=== PATIENT | female | born 1995 | race Caucasian/White ===

== ENCOUNTER 2016-08-11 12:54 | Emergency (ER) | payer OTHER ==
[2016-08-11 13:07] VITALS: BP 117/66; PULSE 89; RESP 18; TEMP 98
--- NOTE | 2016-08-11 13:40 | ED ---
Extremity Problem HPI - General Chief complaint: Extremity Problem,Nontraumatic Stated complaint: Infected Tattoo Time Seen by Provider: 08/11/16 13:12 Source: patient, RN notes reviewed Mode of arrival: ambulatory Limitations: no limitations - History of Present Illness Initial comments: Patient is a 20-year-old female presents to the emergency room for evaluation of tattoo infection/rash. Patient states that she got a tattoo done on her left leg on Saturday. Patient states she had the tattoo done at a friend's house. Patient states she has had tattoos done by this friend before and has never had a rash like this afterwards. Patient states that 2 days ago she began developing a rash surrounding the tattoo site. Patient states yesterday she went to urgent care and she was given a steroid injection, placed on Medrol Dosepak and given mupirocin ointment. Patient states she's been taking the medications as directed and has been applying the ointment. Patient states this morning when she woke up she noticed a worsening rash mostly on the medial portion of her posterior thigh just outside of the tattoo. Patient states the rash is itchy and painful. Patient denies placing any new ointments over the tattoo after the tattoo was finished. Patient states that her friend uses sterile utensils. Patient denies fevers or chills. Patient denies nausea or vomiting. Denies new detergents, body soaps, lotions. - Related Data Home Medications Medication Instructions Recorded Confirmed Mupirocin [Mupirocin 2%] 1 applic TOPICAL QID 08/11/16 08/11/16 methylPREDNISolone Dose Pack See Taper PO DAILY 08/11/16 08/11/16 [Medrol Dose Pack] Previous Rx's Medication Instructions Recorded Cephalexin [Keflex] 500 mg PO Q6HR 7 Days 08/11/16 Allergies Allergy/AdvReac Type Severity Reaction Status Date / Time No Known Allergies Allergy Verified 08/11/16 13:20 Review of Systems ROS Statement: Those systems with pertinent positive or pertinent negative responses have been documented in the HPI. ROS Other: All systems not noted in ROS Statement are negative. Past Medical History Past Medical History: No Reported History Additional Past Medical History / Comment(s): reading glasses History of Any Multi-Drug Resistant Organisms: None Reported Past Surgical History: Adenoidectomy, Tonsillectomy Additional Past Surgical History / Comment(s): wisdom teeth Past Anesthesia/Blood Transfusion Reactions: No Reported Reaction Past Psychological History: No Psychological Hx Reported Smoking Status: Never smoker Past Alcohol Use History: None Reported Past Drug Use History: None Reported - Past Family History Mother Family Medical History: No Reported History, Hypertension Brother(s) Family Medical History: No Reported History, Hypertension General Exam - General Exam Comments Initial Comments: Sitting in exam room, no acute distress. Limitations: no limitations General appearance: alert, in no apparent distress Head exam: Present: atraumatic, normocephalic, normal inspection Eye exam: Present: normal appearance ENT exam: Present: normal exam Neck exam: Present: normal inspection Respiratory exam: Present: normal lung sounds bilaterally. Absent: respiratory distress Cardiovascular Exam: Present: regular rate, normal rhythm, normal heart sounds Left Hip exam: Absent: normal inspection (large tattoo on the posterior portion of the upper thigh in the shape of a black bow. Surrounding erythematous papular lesions. No lesions on the tattoo itself.) Course Vital Signs 08/11/16 13:03 Temperature 98 F Pulse Rate 89 Respiratory 18 Rate Blood Pressure 117/66 O2 Sat by Pulse 99 Oximetry Medical Decision Making - Medical Decision Making Patient is a 20-year-old female since emergency room for evaluation of tattoo infection/rash. is already placed on Medrol Dosepak and mupirocin ointment. Rash does look similar to folliculitis. Patient be placed on Keflex. Advised patient to continue with mupirocin ointment and Medrol Dosepak. Advised patient to follow-up with her primary care provider on Saturday for reevaluation. Patient states she understands everything that was discussed with her. Return parameters discussed. Case discussed with Dr. Aguero who also evaluated patient. Disposition Clinical Impression: Folliculitis Disposition: HOME SELF-CARE Condition: Good Instructions: Folliculitis (ED) Additional Instructions: Continue with mupirocin ointment and steroids. Take antibiotics as directed. Please follow up with primary care provider in 1-2 days for reevaluation. If any new symptom arises or symptoms worsen, return to ER as soon as possible. Prescriptions: Cephalexin [Keflex] 500 mg PO Q6HR 7 Days Referrals: None,Stated [Primary Care Provider] - 1-2 days Time of Disposition: 13:39
== END 2016-08-11 13:54 | disposition home or self-care (01) ==
LOC: EC 12:54
DX: L73.9 Follicular disorder, unspecified (principal)
CPT/HCPCS: 99282

== ENCOUNTER → 2016-11-29 | Outpatient (CLI) | payer OTHER ==
--- NOTE | 2016-11-29 13:25 | US ---
EXAMINATION TYPE: US pelvic complete DATE OF EXAM: 11/29/2016 COMPARISON: NONE CLINICAL HISTORY: R10.2 Pelvic pain. Pt states generalized pelvic pain, pt has had IUD in place appro x 3 yrs TECHNIQUE: Transabdominal (TA), pt stated her bladder felt very full, TV not performed- little child in room Date of LMP: 11/07/2016 EXAM MEASUREMENTS: Uterus: 8.8 x 4.4 x 6.4 cm Endometrial Stripe: Right= 1.2 cm/ Left= 0.8 cm cm Right Ovary: 4.2 x 2.6 x 2.5 cm Left Ovary: 6.2 x 2.9 x 4.0 cm 1. Uterus: Anteverted wnl, IUD in correct position 2. Endometrium: Right and left "horns" visualized/ Right endo= 1.2 cm, Left endo= 0.8 cm 3. Right Ovary: wnl 4. Left Ovary: Simple dominant paraovarian follicle = 2.4 x 1.9 x 1.8 cm/ Possible resolving hemorrh agic cyst/follicle = 1.9 x 1.6 x 1.5 cm versus endometriomas this is homogeneous internal echogenicit y. 5. Bilateral Adnexa: wnl 6. Posterior cul-de-sac: Moderate amount of free fluid= 5.3 x 3.2 x 6.7 cm IMPRESSION: 1. Simple dominant left paraovarian follicle and 1.9 cm resolving left ovarian cyst/follicle versus e ndometrioma. Short-term follow-up in 3 menstrual cycles could be performed to evaluate for resolution . If this follicle has resolved and relates to an involuting hemorrhagic cyst/follicle and if it pers ists endometrioma would be highly considered. 2. Appropriately placed intrauterine device in the appearance of 2 fundal uterine cavities which coul d represent uterine didelphys or septate uterus. 3. Moderate amount of simple appearing free fluid within the dependent pelvis, likely physiologic.
== END | disposition home or self-care (01) ==
LOC: RADUSWWP 12:16
PROVIDERS: ATTEND Obstetrics & Gynecology
DX: R10.2 Pelvic and perineal pain (principal); Z97.5 Presence of (intrauterine) contraceptive device
CPT/HCPCS: 76856

== ENCOUNTER → 2017-01-02 | Outpatient (CLI) | payer OTHER ==
--- NOTE | 2017-01-02 14:51 | US ---
EXAMINATION TYPE: US pelvic complete DATE OF EXAM: 01/02/2017 COMPARISON: Pelvic ultrasound November 29, 2016 CLINICAL HISTORY: Previous left ovarian cyst N83.20. Follow up on left ovarian cyst, h/o IUD TECHNIQUE: TA Date of LMP: 12/10/2016 EXAM MEASUREMENTS: Uterus: 11.2 x 6.9 x 4.8 cm Endometrial Stripe: Rt = 1.1cm, Lt = 0.8cm Right Ovary: 2.7 x 1.9 x 1.9 cm Left Ovary: 3.1 x 2.1 x 2.5 cm 1. Uterus: Retroverted wnl 2. Endometrium: appears to have septated or bicornuate uterus with 2 endometrial horns 3. Right Ovary: wnl 4. Left Ovary: wnl 5. Bilateral Adnexa: mild free fluid adjacent to left ovary 6. Posterior cul-de-sac: wnl IUD remain satisfactory in position. Peripheral follicles are scattered throughout both ovaries. Ther e is interval resolution of greater than 1 cm cystic lesions within the left ovary. There is minimal residual fluid in the pelvis adjacent left ovary. IMPRESSION: No suspicious adnexal lesions are identified on current study.
== END | disposition home or self-care (01) ==
LOC: RADUSWWP 13:50
PROVIDERS: ATTEND Obstetrics & Gynecology
DX: N83.202 Unspecified ovarian cyst, left side (principal)
CPT/HCPCS: 76856

== ENCOUNTER → 2017-11-22 | Outpatient (CLI) | payer OTHER ==
--- NOTE | 2017-11-22 15:37 | FL ---
EXAMINATION TYPE: FL hysterosalpingography DATE OF EXAM: 11/22/2017 HISTORY: Sharp pelvic pain with concern for bicornate uterus. PROCEDURE: 1 min 20 seconds fluoro. 15 fluoroscopic images saved. ISO 370 used, 7 mL injected. Informed consent was obtained and all the patient's questions were answered. Preprocedural timeout w as performed. Preliminary film of the pelvis reveals no distinct abnormality. A speculum was introdu lola and the external cervical os was localize. The vaginal cuff was cleansed and a Betadine solution on 3 occasions. Hysterosalpingography catheter was introduced into the uterus and balloon insufflat ion device deployed. Approximately 7 cc of nonionic contrast was injected in a retrograde manner. The retroverted uterus has a single uterine canal with a very mild broad indentation of the uterine f undus and no septum visualized. Findings are compatible with minimal arcuate morphology, normal varia nt. No persistent uterine filling defects are seen. There is delayed filling of the right fallopian tube although eventual filling and spill of contrast into the peritoneal cavity was seen bilaterally . IMPRESSION: 1. Subtle indentation of the endometrium at the uterine fundus compatible with arcuate uterus. 2. Delayed but eventual spill of contrast into the peritoneal cavity on the right and normal spill of contrast into the peritoneal cavity on the left.
== END | disposition home or self-care (01) ==
LOC: RADFLMAIN 13:38
PROVIDERS: ATTEND Obstetrics & Gynecology
DX: Q51.3 Bicornate uterus (principal)
CPT/HCPCS: 58340; 74740; Q9967

== ENCOUNTER 2018-06-09 21:58 | Emergency (ER) | payer OTHER ==
[2018-06-09 23:23] LABS: Basophils # (A) 0.1 k/uL (0-0.2); Basophils % (A) 1 %; Eosinophils # (A) 0.3 k/uL (0-0.7); Eosinophils % (A) 3 %; HGB 12.8 gm/dL (11.4-16.0); Lymphocytes # (A) 2.6 k/uL (1.0-4.8); Lymphocytes % (A) 24 %; MCH 31.1 pg (25.0-35.0); MCHC 33.7 g/dL (31.0-37.0); MCV 92.3 fL (80.0-100.0); Mean Platelet Volume 7.1; Monocytes # (A) 0.6 k/uL (0-1.0); Monocytes % (A) 6 %; Neutrophils # (A) 7.2 k/uL (1.3-7.7); Neutrophils % (A) 65 %; Platelet Count 320 k/uL (150-450); RBC 4.11 m/uL (3.80-5.40); RDW 12.9 % (11.5-15.5)
[2018-06-09 23:30] LABS: Appearance,Urine Bloody (Clear); Color,Urine Dark Red; RBC,Urine >182 /hpf (0-5); WBC,Urine >182 /hpf (0-5)
[2018-06-10] MEDS ORDERED: SODIUM CHLORIDE 0.9% 1,000 ML IV ONE (00:09)
[2018-06-10 00:35] LABS: ALT 27 U/L (9-52); AST 18 U/L (14-36); Albumin 4.5 g/dL (3.5-5.0); Alkaline Phosphatase 46 U/L (38-126); Anion Gap 10 mmol/L; Blood Urea Nitrogen 14 mg/dL (7-17); Calcium 10.1 mg/dL (8.4-10.2); Carbon Dioxide 24 mmol/L (22-30); Chloride 103 mmol/L (98-107); Glucose 78 mg/dL (74-99); Potassium 3.9 mmol/L (3.5-5.1); Sodium 137 mmol/L (137-145); Total Bilirubin 0.3 mg/dL (0.2-1.3); Total Protein 7.2 g/dL (6.3-8.2)
[2018-06-10 00:54] LABS: Partial Thromboplastin Time 25.6 sec (22.0-30.0); Prothrombin Time 10.4 sec (9.0-12.0)
[2018-06-10 01:28] VITALS: BP 99/70; PULSE 75; RESP 16; TEMP 98.5
--- NOTE | 2018-06-10 01:54 | US ---
EXAM: US First Trimester, Transabdominal US , Transvaginal CLINICAL HISTORY: Pain. Bleeding 1 day. TECHNIQUE: Real-time transabdominal and transvaginal obstetrical ultrasound of the maternal pelvis and a first trimester with image documentation. Transvaginal imaging was used for better evaluation of the fetus and adnexa. COMPARISON: No relevant prior studies available. FINDINGS: Gestation: Single live intrauterine gestation. Ruch-rump length measures 1.12 cm corresponding to 7 weeks 2 days. heart rate 167 bpm. DONTE 01/25/2019. Placenta/amniotic fluid: Placenta/amniotic fluid to early to assess. Small heterogeneous area adjacent to gestational sac measuring 2.41.7 cm may represent small subchorionic hemorrhage. Uterus/cervix: Gravid uterus. Uterus measures 10.97.66.5 cm. No myometrial mass. Ovaries: Right ovary measures 3.22.23.1 cm. Left ovary measures 2. 02.01.9 cm. Left ovarian corpus luteum cyst. Free fluid: Small free fluid in pelvic cul-de-sac. IMPRESSION: 1. Single live intrauterine gestation measuring 7 weeks 2 days (DONTE 01/25/2019) with heart rate 167 bpm. 2. Small heterogeneous area adjacent to gestational sac measuring 2.41. 7 cm may represent small subchorionic hemorrhage. Recommend attention on follow-up imaging. 3. Left ovarian corpus luteum cyst. 4. Small free fluid in the pelvis.
--- NOTE | 2018-06-10 01:58 | ED ---
Female Urogenital HPI - General Source: patient Mode of arrival: ambulatory Limitations: no limitations <Jody Alcocer - Last Filed: 06/10/18 04:01> <Neetu Guzman - Last Filed: 06/11/18 07:56> - General Chief complaint: Vaginal Bleeding Stated complaint: 8 weeks and bleeding Time Seen by Provider: 06/09/18 23:14 - History of Present Illness Initial comments: 22-year-old female patient presents to the emergency department today for evaluation of lower abdominal cramping and vaginal bleeding. Patient states she is approximately 8 weeks . She is . Patient states that bleeding started earlier in the day with light pink spotting. Patient states that she put a panty liner on and shortly after had soaked through the panty liner so she presented here for further evaluation. She denies any passage of clots. Patient denies any significant pain to her back. Denies any hematuria, dysuria, urinary frequency, urinary urgency. She is seeing Dr. Mcgee outpatient for [facility] care. Has had a ultrasound at 6 weeks gestation confirming intrauterine . She denies fever or chills. Denies constipation or diarrhea. Patient denies any recent rash, shortness breath, chest pain, nausea, vomiting, back pain, numbness, tingling, dizziness, weakness , headache, visual changes, or any other complaints. (Jody Alcocer) - Related Data Home Medications Medication Instructions Recorded Confirmed Qnf-Iynv-Ifqls Acid 1 cap PO DAILY 06/09/18 06/09/18 [-U Capsule (formulary)] Allergies Allergy/AdvReac Type Severity Reaction Status Date / Time No Known Allergies Allergy Verified 06/09/18 22:13 Review of Systems ROS Other: All systems not noted in ROS Statement are negative. <Jody Alcocer - Last Filed: 06/10/18 04:01> ROS Other: All systems not noted in ROS Statement are negative. <Neetu Guzman - Last Filed: 06/11/18 07:56> ROS Statement: Those systems with pertinent positive or pertinent negative responses have been documented in the HPI. Past Medical History Past Medical History: No Reported History Additional Past Medical History / Comment(s): reading glasses History of Any Multi-Drug Resistant Organisms: None Reported Past Surgical History: Adenoidectomy, Tonsillectomy Additional Past Surgical History / Comment(s): wisdom teeth Past Anesthesia/Blood Transfusion Reactions: No Reported Reaction Past Psychological History: No Psychological Hx Reported Smoking Status: Never smoker Past Alcohol Use History: None Reported Past Drug Use History: None Reported - Past Family History Mother Family Medical History: No Reported History, Hypertension Brother(s) Family Medical History: No Reported History, Hypertension <Jody Alcocer - Last Filed: 06/10/18 04:01> General Exam Limitations: no limitations General appearance: alert, in no apparent distress, other (Physical well- developed, well-nourished adult female patient in no acute distress. Vital signs upon presentation are temperature 98.4F, pulse 80, respirations 18, blood pressure 124/66, pulse ox 98% on room air.) Eye exam: Present: normal appearance, PERRL, EOMI. Absent: scleral icterus, conjunctival injection, periorbital swelling ENT exam: Present: normal exam, normal oropharynx, mucous membranes moist Respiratory exam: Present: normal lung sounds bilaterally. Absent: respiratory distress, wheezes, rales, rhonchi, stridor Cardiovascular Exam: Present: regular rate, normal rhythm, normal heart sounds. Absent: systolic murmur, diastolic murmur, rubs, gallop, clicks GI/Abdominal exam: Present: soft, normal bowel sounds. Absent: distended, tenderness, guarding, rebound, rigid Neurological exam: Present: alert, oriented X3, CN II-XII intact Psychiatric exam: Present: normal affect, normal mood Skin exam: Present: warm, dry, intact, normal color. Absent: rash <Jody Alcocer M - Last Filed: 06/10/18 04:01> Vital Signs 06/09/18 06/10/18 22:11 01:27 Temperature 98.4 F 98.5 F Pulse Rate 80 75 Respiratory 18 16 Rate Blood Pressure 124/66 99/70 O2 Sat by Pulse 98 100 Oximetry Medical Decision Making - Lab Data Result diagrams: 06/09/18 22:20 06/09/18 22:20 - Radiology Data Radiology results: report reviewed, image reviewed <Jody Alcocer - Last Filed: 06/10/18 04:01> - Lab Data Result diagrams: 06/09/18 22:20 06/09/18 22:20 <Neetu Guzman - Last Filed: 06/11/18 07:56> - Medical Decision Making 22-year-old female patient presented to the emergency department today for evaluation of cramping and vaginal bleeding. Patient has several weeks [address] Mcgee outpatient. Labs reviewed and did reveal hCG of 136,000. Ultrasound was obtained and showed single live intrauterine measuring 7 weeks 1 day with heart rate of 167. There was evidence of a small subchorionic hemorrhage on the ultrasound. Did discuss findings and results with the patient. She is advised to maintain pelvic rest until she follows up and is cleared by Dr. Charles. She is instructed to call his office for an appointment in the morning. Return parameters were discussed in detail. She verbalizes understanding and agrees this plan. (Jody Alcocer) I was available for consultation in the emergency department. The history and physical exam were done by the midlevel provider. I was consulted for this patient's care. I reviewed the case with the midlevel provider and based on their presentation of the patient, I agree with the assessment, medical decision making and plan of care as documented. (Neetu Guzman) - Lab Data Lab Results 06/09/18 06/09/18 06/09/18 Range/Units 22:20 22:20 22:20 WBC 11.0 H (3.8-10.6) k/uL RBC 4.11 (3.80-5.40) m/uL Hgb 12.8 (11.4-16.0) gm/dL Hct 38.0 (34.0-46.0) % MCV 92.3 (80.0-100.0) fL MCH 31.1 (25.0-35.0) pg MCHC 33.7 (31.0-37.0) g/dL RDW 12.9 (11.5-15.5) % Plt Count 320 (150-450) k/uL Neutrophils % 65 % Lymphocytes % 24 % Monocytes % 6 % Eosinophils % 3 % Basophils % 1 % Neutrophils # 7.2 (1.3-7.7) k/uL Lymphocytes # 2.6 (1.0-4.8) k/uL Monocytes # 0.6 (0-1.0) k/uL Eosinophils # 0.3 (0-0.7) k/uL Basophils # 0.1 (0-0.2) k/uL PT (9.0-12.0) sec INR (<1.2) APTT (22.0-30.0) sec Sodium (137-145) mmol/L Potassium (3.5-5.1) mmol/L Chloride (98-107) mmol/L Carbon Dioxide (22-30) mmol/L Anion Gap mmol/L BUN (7-17) mg/dL Creatinine (0.52-1.04) mg/dL Est GFR (CKD-EPI)AfAm (>60 ml/min/1.73 sqM) Est GFR (CKD-EPI)NonAf (>60 ml/min/1.73 sqM) Glucose (74-99) mg/dL Calcium (8.4-10.2) mg/dL Total Bilirubin (0.2-1.3) mg/dL AST (14-36) U/L ALT (9-52) U/L Alkaline Phosphatase (38-126) U/L Total Protein (6.3-8.2) g/dL Albumin (3.5-5.0) g/dL HCG, Quant 124730.0 mIU/mL Urine Color Dark Red Urine Appearance Bloody H (Clear) Urine RBC >182 H (0-5) /hpf Urine WBC >182 H (0-5) /hpf Urine WBC Clumps Many H (None) /hpf Blood Type Blood Type Recheck 06/09/18 06/09/18 06/09/18 Range/Units 22:20 22:20 22:20 WBC (3.8-10.6) k/uL RBC (3.80-5.40) m/uL Hgb (11.4-16.0) gm/dL Hct (34.0-46.0) % MCV (80.0-100.0) fL MCH (25.0-35.0) pg MCHC (31.0-37.0) g/dL RDW (11.5-15.5) % Plt Count (150-450) k/uL Neutrophils % % Lymphocytes % % Monocytes % % Eosinophils % % Basophils % % Neutrophils # (1.3-7.7) k/uL Lymphocytes # (1.0-4.8) k/uL Monocytes # (0-1.0) k/uL Eosinophils # (0-0.7) k/uL Basophils # (0-0.2) k/uL PT 10.4 (9.0-12.0) sec INR 1.0 (<1.2) APTT 25.6 (22.0-30.0) sec Sodium 137 (137-145) mmol/L Potassium 3.9 (3.5-5.1) mmol/L Chloride 103 (98-107) mmol/L Carbon Dioxide 24 (22-30) mmol/L Anion Gap 10 mmol/L BUN 14 (7-17) mg/dL Creatinine 0.57 (0.52-1.04) mg/dL Est GFR (CKD-EPI)AfAm >90 (>60 ml/min/1.73 sqM) Est GFR (CKD-EPI)NonAf >90 (>60 ml/min/1.73 sqM) Glucose 78 (74-99) mg/dL Calcium 10.1 (8.4-10.2) mg/dL Total Bilirubin 0.3 (0.2-1.3) mg/dL AST 18 (14-36) U/L ALT 27 (9-52) U/L Alkaline Phosphatase 46 (38-126) U/L Total Protein 7.2 (6.3-8.2) g/dL Albumin 4.5 (3.5-5.0) g/dL HCG, Quant mIU/mL Urine Color Urine Appearance (Clear) Urine RBC (0-5) /hpf Urine WBC (0-5) /hpf Urine WBC Clumps (None) /hpf Blood Type A Positive Blood Type Recheck [facility] ONLY - Radiology Data ultrasound was obtained. Report was reviewed in its entirety. Impression by Dr. Bonilla shows single live intrauterine gestation measuring 7 weeks 2 days with heart rate at 167. Small heterogenous area adjacent to the gestational sac measuring 2.4 x 1.7 cm may represent small subchorionic hemorrhage. Left ovarian corpus luteum cyst. Small free fluid in the pelvis. ( Jody Alcocer) Disposition Is patient prescribed a controlled substance at d/c from ED?: No Time of Disposition: 01:57 <Jody Alcocer - Last Filed: 06/10/18 04:01> <Neetu Guzman - Last Filed: 06/11/18 07:56> Clinical Impression: Subchorionic hemorrhage Disposition: HOME SELF-CARE Condition: Good Instructions (If sedation given, give patient instructions): Subchorionic Hemorrhage (ED) Additional Instructions: Increase fluids. Pelvic rest until cleared by [facility]. Follow-up with your OB/ OUTREACH COUNSELOR for recheck as soon as possible. Return to the emergency department immediately for any new, worsening, or concerning symptoms. Referrals: Catracho Resendiz MD [Primary Care Provider] - 1-2 days
== END 2018-06-10 02:11 | disposition home or self-care (01) ==
LOC: EC 21:58
DX: O20.8 Other hemorrhage in early pregnancy (principal); Z53.8 Procedure and treatment not carried out for other reasons; Z3A.01 Less than 8 weeks gestation of pregnancy
CPT/HCPCS: 36415; 76801; 76817; 80053; 81001; 84702; 85025; 85610; 85730; 86900; 86901; 99284

== ENCOUNTER → 2018-06-16 | Outpatient (CLI) | payer OTHER ==
--- NOTE | 2018-06-17 10:30 | US ---
EXAMINATION TYPE: Ultrasound OB <= 40 week fetus DATE OF EXAM: 06/16/2018 3:36 PM COMPARISON: NONE CLINICAL HISTORY: 22-year-old female Z36 confirm dates. EXAM PERFORMED: Transabdominal FINDINGS: EXAM MEASUREMENTS: GESTATIONAL AGE / DATING Physician Established: Not yet established Dates by LMP: (8 weeks/1 days) EDC: 01/25/19 Dates by First Scan: (8 weeks/1 days) EDC: 01/25/19 Dates by Current Scan for: ( 8 weeks/1 days) EDC: 01/25/19 MATERNAL ANATOMY Uterus: 8.4 x 7.2 x 8.8cm Right Ovary: 2.4 x 1.4 x 1.9cm Left Ovary: 4.8 x 2.0 x 2.0 cm Post CDS / Adnexa: wnl Presence of free fluid: no Cyst noted on left ovary measuring 2.0 x 1.7 x 2.1cm Moderate to large sized anterior inferior subchorionic bleed: 3.7 x 1.6 x 2.4cm (versus 2.4 x 1.7 cm, previously). GESTATION / SURVEY CRL: 1.6cm (8 weeks/1 days) Yolk Sac (normal less than 6mm): 3mm Heart Rate: 174 bpm Rhythm: Normal IUP: Viable IUP Date of LMP: 04/20/18 Beta HcG (if available): Not available at this time Subchorionic hemorrhage increased in size. IMPRESSION: 1. Moderate to large sized anterior inferior perigestational bleed has increased in size from 06/10/19 19 now measuring 3.6 x 2.4 cm (versus 2.4 x 1.7 cm, previously). 2. Single live intrauterine with estimated gestational age of 8 weeks 1 day which remains c oncordant. 3. Given the size of the perigestational bleed, consider follow-up. The heart rate is also uppe r limits of normal (174 BPM).
== END ==
LOC: RADUSWWP 15:23
PROVIDERS: ATTEND Obstetrics & Gynecology
DX: O20.9 Hemorrhage in early pregnancy, unspecified (principal); Z3A.08 8 weeks gestation of pregnancy
CPT/HCPCS: 76801

== ENCOUNTER → 2018-06-27 | Outpatient (CLI) | payer OTHER ==
--- NOTE | 2018-06-28 12:02 | US ---
EXAMINATION TYPE: Transabdominal DATE OF EXAM: 06/27/2018 4:32 PM COMPARISON: NONE CLINICAL HISTORY: Z36 CONFIRM DATES. EXAM PERFORMED: Transabdominal (TA) EXAM MEASUREMENTS: GESTATIONAL AGE / DATING Physician Established: (10 weeks/6 days) EDC: 01/17/2019 Dates by LMP: (10 weeks/6 days) EDC: 01/17/2019 Dates by First Scan: (8 weeks/3 days) EDC: 01/25/2019 Dates by Current Scan for: (10 weeks/3 days) EDC: 01/20/2019 MATERNAL ANATOMY Uterus: 10.8 x 7.7 x 9.1 cm Right Ovary: out of field of view Left Ovary: out of field of view Post CDS / Adnexa: wnl Presence of free fluid: no Presence of corpus luteal cyst: no Presence of subchorionic bleed: yes, 5.5 x 1.2 x 5.6 cm GESTATION / SURVEY CRL: 3.4 cm (10 weeks/3 days) Yolk Sac (normal less than 6mm): 4 mm Heart Rate: 174 bpm Rhythm: Normal IUP: Viable IUP Date of LMP: 04/12/2018 Single, viable IUP of 10 wks 3 days, EDC of 01/20/2019. Posterior subchrionic bleed approximately 5 cm IMPRESSION: Single, viable IUP of 10 wks 3 days, EDC of 01/20/2019. Posterior subchrionic bleed approximately 5 cm
== END ==
LOC: RADUSWWP 16:15
PROVIDERS: ATTEND Obstetrics & Gynecology
DX: Z36.89 Encounter for other specified antenatal screening (principal); Z3A.10 10 weeks gestation of pregnancy
CPT/HCPCS: 76801

== ENCOUNTER → 2018-07-09 | Outpatient (CLI) | payer OTHER ==
--- NOTE | 2018-07-09 16:14 | US ---
EXAMINATION TYPE: Ultrasound OB <= 14 week fetus DATE OF EXAM: 07/09/2018 3:43 PM COMPARISON: 06/27/2018 CLINICAL HISTORY: 22-year-old female O46.91 BLEEDING,SPOTTING. Follow up subchorionic bleed, 2, para 1 EXAM PERFORMED: Transabdominal (TA) EXAM MEASUREMENTS: GESTATIONAL AGE / DATING Physician Established: (12 weeks/4 days) EDC: 01/17/2019 Dates by LMP: (12 weeks/4 days) EDC: 01/17/2019 Dates by First Scan: (11 weeks/4 days) EDC: 01/25/2019 Dates by Current Scan for: (12 weeks/2 days) EDC: 01/19/2019 MATERNAL ANATOMY Uterus: 11.8 x 8.3 x 10.1cm Right Ovary: 3.6 x 2.0 x 1.9cm Left Ovary: 4.4 x 2.6 x 2.7cm, 1.8 x 1.9 x 1.7cm cystic area Post CDS / Adnexa: wnl Presence of free fluid: wnl Presence of corpus luteal cyst: not seen Presence of subchorionic bleed: yes, moderate-sized - 2.1 x 3.7 x 3.7cm located to the right of the g estational sac GESTATION / SURVEY CRL: 5.7cm (12 weeks/2 days) Yolk Sac (normal less than 6mm): not seen Heart Rate: 161 bpm Rhythm: Normal IUP: Viable IUP Nuchal Translucency 10-14wks (normal less than 3mm): 1.4mm Date of LMP: 04/12/2018 Beta HcG (if available): Not available at time of exam [employer] notes: Viable single IUP measuring 12 weeks 2 days with a heart rate of 161bpm and an est imated delivery date of 01/19/2019, 3.7cm subchorionic bleed. IMPRESSION: 1. Single live intrauterine with estimated gestational age of 12 weeks 4 days by LMP. Curre nt ultrasound biometry is slightly smaller but continues to trend towards the established gestational age (current ultrasound biometry measuring 12 weeks 2 days). 2. Moderate-sized perigestational bleed measuring 3.7 x 3.7 cm. This was measured 5.6 x 5.5 cm, previ ously. Additional follow-up as indicated. 3. Complete survey recommended at 18-20 weeks.
== END ==
LOC: RADUSWWP 15:15
PROVIDERS: ATTEND Obstetrics & Gynecology
DX: O41.8X10 Other specified disorders of amniotic fluid and membranes, first trimester, not applicable or unspecified (principal); Z3A.20 20 weeks gestation of pregnancy
CPT/HCPCS: 76801; 76813

== ENCOUNTER 2019-01-13 06:15 | Inpatient (IN) | payer OTHER ==
[2019-01-13] MEDS: LACTATED RINGERS 1,000 ML IV SCH ×2 (06:50→10:29)
[2019-01-13] MEDS ORDERED: CARBOPROST TROMETHAMINE 250 MCG/ML 1 ML AMP IM PRN (06:58)
[2019-01-13] MEDS ORDERED: OXYTOCIN 10 UNIT/ML 1 ML VIAL IM PRN (06:58)
[2019-01-13] MEDS ORDERED: METHYLERGONOVINE 0.2 MG/ML 1 ML AMP IM PRN (06:58)
[2019-01-13] MEDS ORDERED: LIDOCAINE 0.5% (PF) 5 MG/ML (50 ML SDV) SQ PRN (06:58)
[2019-01-13] MEDS ORDERED: TERBUTALINE 1 MG/ML VIAL SQ PRN (06:58)
[2019-01-13] MEDS ORDERED: OXYTOCIN 30 UNITS/500 ML NS 30 UNIT in SALINE 1 500ML.BAG IV SCH (07:00)
[2019-01-13 07:27] VITALS: RESP 16; BMI 30.4
[2019-01-13 08:26] LABS: Basophils # (A) 0.1 k/uL (0-0.2); Basophils % (A) 1 %; Eosinophils # (A) 0.3 k/uL (0-0.7); Eosinophils % (A) 3 %; HCT 35.8 % (34.0-46.0); Lymphocytes # (A) 2.2 k/uL (1.0-4.8); Lymphocytes % (A) 19 %; MCH 31.7 pg (25.0-35.0); MCHC 33.4 g/dL (31.0-37.0); MCV 94.8 fL (80.0-100.0); Mean Platelet Volume 7.2; Monocytes # (A) 0.8 k/uL (0-1.0); Monocytes % (A) 7 %; Neutrophils # (A) 8.1 k/uL (1.3-7.7); Neutrophils % (A) 69 %; Platelet Count 267 k/uL (150-450); RBC 3.77 m/uL (3.80-5.40); RDW 13.4 % (11.5-15.5); WBC 11.8 k/uL (3.8-10.6)
[2019-01-13] MEDS ORDERED: ROPIVACAINE 100 MG, fentaNYL (PF) 200 MCG in SODIUM CHLORIDE 0.9% 76 ML EPIDURAL ONE (13:34)
[2019-01-13] MEDS ORDERED: ZOLPIDEM 5 MG TAB PO PRN (15:09)
[2019-01-13] MEDS ORDERED: SIMETHICONE 80 MG CHEWABLE PO PRN (15:09)
[2019-01-13] MEDS ORDERED: diphenhydrAMINE 50 MG/ML 1 ML VIAL IVP PRN ×2 (15:09)
[2019-01-13] MEDS ORDERED: BENZOCAINE/MENTHOL SPRAY 1 GM/SPRAY AEROSOL TOPICAL PRN (15:09)
[2019-01-13] MEDS ORDERED: diphenhydrAMINE 50 MG CAP PO PRN (15:09)
[2019-01-13] MEDS ORDERED: diphenhydrAMINE 25 MG CAP PO PRN (15:09)
[2019-01-13] MEDS ORDERED: ACETAMINOPHEN TAB 325 MG TAB PO PRN (15:09)
[2019-01-13] MEDS ORDERED: HYDROCORTISONE 2.5% RECTAL CREAM 30 GM TUBE RECTAL PRN (15:09)
[2019-01-13] MEDS ORDERED: WITCH HAZEL 1 EACH MED..PAD TOPICAL PRN (15:09)
[2019-01-13] MEDS ORDERED: LANOLIN CREAM 5 GM TUBE TOPICAL PRN (15:09)
[2019-01-13] MEDS ORDERED: OXYTOCIN 20 UNITS/1000 ML NS 1,000 ML IV SCH (15:15)
[2019-01-13] MEDS: IBUPROFEN 600 MG TAB PO PRN (15:23)
--- NOTE | 2019-01-13 16:54 | P.HPOB ---
History of Present Illness H&P Date: 01/13/19 Chief Complaint: Intrauterine at term: Induction of labor Patient is a 23 at 39 weeks gestation arise for induction of labor. Her Precis course was unremarkable and she is feeling well at this time. We followed her closely throughout the and she is had no significant issues. She is currently dilated to 37 m artificial rupture membranes was perf ormed and clear fluid is noted. Category 1 tracing is noted. Pertinent labs do include A+ blood type, Rh and it was negative, rubella immune, hepatitis B surface antigen and RPR as well as GBS were all negative. She plans to use epidural for analgesia and all other questions were answered for her at this time. Plan is for Pitocin augmentation of labor. Past Medical History Past Medical History: No Reported History Additional Past Medical History / Comment(s): reading glasses History of Any Multi-Drug Resistant Organisms: None Reported Past Surgical History: Adenoidectomy, Tonsillectomy Additional Past Surgical History / Comment(s): wisdom teeth Past Anesthesia/Blood Transfusion Reactions: No Reported Reaction Past Psychological History: No Psychological Hx Reported Smoking Status: Never smoker Past Alcohol Use History: None Reported Past Drug Use History: None Reported - Past Family History Mother Family Medical History: No Reported History, Hypertension Brother(s) Family Medical History: No Reported History, Hypertension Medications and Allergies Home Medications Medication Instructions Recorded Confirmed Type Wze-Uant-Augqr Acid 1 cap PO DAILY 06/09/18 01/13/19 History [-U Capsule (formulary)] Allergies Allergy/AdvReac Type Severity Reaction Status Date / Time No Known Allergies Allergy Verified 01/13/19 06:56 Exam Osteopathic Statement: *. No significant issues noted on an osteopathic structural exam other than those noted in the History and Physical/Consult. Vital Signs Temp Pulse Resp BP Pulse Ox 01/13/19 16:39 70 16 114/68 01/13/19 16:09 78 16 120/73 01/13/19 15:54 82 16 109/63 01/13/19 15:39 75 16 116/65 01/13/19 15:24 93 16 117/58 01/13/19 15:09 90 16 113/60 01/13/19 06:56 97.4 F L 88 16 114/77 100 Intake and Output 01/13/19 01/13/19 01/13/19 06:59 14:59 22:59 Intake Total 1000 Balance 1000 Intake: Intake, IV Titration 1000 Amount Lactated Ringers 1,000 ml 1000 @ 125 mls/hr IV .Q8H [facility] Rx#:[id number] Other: Weight 70.76 kg - OBG Physical Exam Breast: both: normal (no masses) Abdomen: bowel sounds normal, no diffuse tenderness, no bruit present, no guarding noted, no hepatomegaly, no splenomegaly, no mass Vulva: both: normal Vagina: normal moisture, no discharge Cervix: no lesion, no discharge Uterus: normal size, normal contour Adnexa: both: normal Anus/Rectum: normal perianal skin, no rectal mass, no hemorrhoids, heme negative Results Result Diagrams: 01/13/19 07:00 Abnormal Lab Results - Last 24 Hours (Table) 01/13/19 Range/Units 07:00 WBC 11.8 H (3.8-10.6) k/uL RBC 3.77 L (3.80-5.40) m/uL Neutrophils # 8.1 H (1.3-7.7) k/uL
--- NOTE | 2019-01-13 16:55 | P.PROBDLV ---
Vaginal Delivery Note - . Vaginal Delivery Note: Patient progressed complete and pushing with spontaneous vaginal delivery of a viable female over an intact perineum. Falling deliver the head anterior posterior shoulders were easily delivered with gentle downward upper traction and compound hand was noted. Baby was delivered from left occiput anterior position. scores were 8 and 9 at one and 5 minutes [place] and weight was 6 lbs. 15 oz. Following deliver the placenta both mother and baby are noted to be stable. Pitocin was also added to the IV following placental delivery. The umbilical cord was also left pulsate for 40 seconds prior to clamping and cutting.
[2019-01-13] MEDS ORDERED: SENNOSIDES-DOCUSATE SODIUM 1 EACH TAB PO SCH (20:00)
[2019-01-14] MEDS: IBUPROFEN 600 MG TAB PO PRN ×3 (01:11→14:01)
[2019-01-14 07:54] LABS: Basophils % (A) 0 %; Eosinophils # (A) 0.3 k/uL (0-0.7); Eosinophils % (A) 2 %; HCT 34.8 % (34.0-46.0); HGB 11.9 gm/dL (11.4-16.0); Lymphocytes % (A) 12 %; MCH 32.6 pg (25.0-35.0); MCHC 34.2 g/dL (31.0-37.0); MCV 95.2 fL (80.0-100.0); Mean Platelet Volume 6.8; Monocytes # (A) 0.8 k/uL (0-1.0); Monocytes % (A) 5 %; Neutrophils # (A) 13.5 k/uL (1.3-7.7); Neutrophils % (A) 80 %; Platelet Count 257 k/uL (150-450); RBC 3.66 m/uL (3.80-5.40); RDW 13.3 % (11.5-15.5); WBC 16.8 k/uL (3.8-10.6)
--- NOTE | 2019-01-14 08:38 | P.DS ---
Providers Date of admission: 01/13/19 06:48 Expected date of discharge: 01/14/19 Attending physician: Loy Mcgee Primary care physician: Stated None Hospital Course: Idania is doing very well post day 1. She is ambulating, voiding and tolerating her diet. She voices no complaints. Vital signs are stable and she is afebrile. Heart regular, lungs clear, extremities without pain. Abdomen is soft uterus is firm and lochia is reported to be light. Assessment day 1. Plan discharged home follow up with me in 6 weeks. She is aware to have no heavy lifting, limit stairs and driving, and pelvic rest. Other discharge instructions were thoroughly reviewed and all questions were answered for her prior to discharge. She is stable for discharge at this time. Patient Condition at Discharge: Good Plan - Discharge Summary New Discharge Prescriptions: New Ibuprofen [Motrin] 600 mg PO Q6HR PRN #30 tab PRN Reason: Pain No Action Sde-Hvot-Ehutr Acid [-U Capsule (formulary)] 1 cap PO DAILY Discharge Medication List Tyx-Nfyy-Abxkv Acid [-U Capsule (formulary)] 1 cap PO DAILY 06/09/18 [History] Ibuprofen [Motrin] 600 mg PO Q6HR PRN #30 tab 01/14/19 [Rx] Follow up Appointment(s)/Referral(s): Loy Mcgee DO [Doctor of Osteopathic Medicine] - 6 Weeks Activity/Diet/Wound Care/Special Instructions: IV lifting, surgeon driving, and pelvic rest. If any high temperatures, heavy bleeding, or severe pain call my office Discharge Disposition: HOME SELF-CARE
[2019-01-14 16:08] VITALS: BP 108/59; PULSE 69; TEMP 98.4
== END 2019-01-14 17:05 | disposition home or self-care (01) | DRG 807 ==
LOC: 4FBP 06:48
PROVIDERS: ADMIT Obstetrics & Gynecology; ATTEND Obstetrics & Gynecology
PROC: 10E0XZZ Delivery of Products of Conception, External Approach (ICD-10-PCS; principal; 2019-01-13)
PROC: 10907ZC Drainage of Amniotic Fluid, Therapeutic from Products of Conception, Via Natural or Artificial Opening (ICD-10-PCS; 2019-01-13)
PROC: 00HU33Z Insertion of Infusion Device into Spinal Canal, Percutaneous Approach (ICD-10-PCS; 2019-01-13)
PROC: 3E0R3BZ Introduction of Anesthetic Agent into Spinal Canal, Percutaneous Approach (ICD-10-PCS; 2019-01-13)
DX: O80 Encounter for full-term uncomplicated delivery (principal); Z37.0 Single live birth; Z3A.39 39 weeks gestation of pregnancy
CPT/HCPCS: 85025; 86850; 86900; 86901

== ENCOUNTER 2020-10-18 16:53 | Emergency (ER) | payer OTHER ==
[2020-10-18 16:56] VITALS: TEMP 98
[2020-10-18] MEDS ORDERED: SODIUM CHLORIDE 0.9% 1,000 ML IV STA (17:14)
[2020-10-18] MEDS ORDERED: ACETAMINOPHEN TAB 500 MG TAB PO STA (17:16)
[2020-10-18 17:45] LABS: Basophils % (A) 0 %; Eosinophils # (A) 0.3 k/uL (0-0.7); Eosinophils % (A) 3 %; HCT 37.7 % (34.0-46.0); Lymphocytes # (A) 0.6 k/uL (1.0-4.8); Lymphocytes % (A) 6 %; MCH 31.8 pg (25.0-35.0); MCHC 34.4 g/dL (31.0-37.0); MCV 92.5 fL (80.0-100.0); Mean Platelet Volume 7.2; Monocytes # (A) 0.4 k/uL (0-1.0); Monocytes % (A) 3 %; Neutrophils % (A) 88 %; Platelet Count 288 k/uL (150-450); RBC 4.08 m/uL (3.80-5.40); RDW 12.5 % (11.5-15.5); WBC 11.3 k/uL (3.8-10.6)
[2020-10-18 18:20] LABS: Appearance,Urine Cloudy (Clear); Bilirubin,Urine Negative (Negative); Blood,Urine Negative (Negative); Color,Urine Yellow; Glucose,Urine (UA) Negative (Negative); Ketones,Urine 4+ (Negative); Leukocyte Esterase,Urine Negative (Negative); Mucus,Urine Many /hpf; Nitrite,Urine Negative (Negative); Protein,Urine Trace (Negative); RBC,Urine 1 /hpf (0-5); Specific Gravity,Urine 1.029 (1.001-1.035); Squamous Epithelial Cell,Urine 35 /hpf (0-4); Urobilinogen,Urine <2.0 mg/dL (<2.0); WBC,Urine 3 /hpf (0-5)
[2020-10-18 18:27] LABS: ALT 13 U/L (4-34); AST 19 U/L (14-36); African American GFR (CKD) >90 (>60 ml/min/1.73 sqM); Albumin 4.1 g/dL (3.5-5.0); Alkaline Phosphatase 59 U/L (38-126); Anion Gap 7 mmol/L; Blood Urea Nitrogen 7 mg/dL (7-17); C Reactive Protein 3.3 mg/dL (<1.0); Carbon Dioxide 25 mmol/L (22-30); Chloride 104 mmol/L (98-107); Glucose 98 mg/dL (74-99); Lipase 99 U/L (23-300); Non-African American GFR(CKD) >90 (>60 ml/min/1.73 sqM); Potassium 3.9 mmol/L (3.5-5.1); Sodium 136 mmol/L (137-145); Total Bilirubin 0.7 mg/dL (0.2-1.3); Total Protein 6.6 g/dL (6.3-8.2)
--- NOTE | 2020-10-18 19:14 | ED ---
General Adult HPI - General Chief complaint: Nausea/Vomiting/Diarrhea Stated complaint: 7wks preg, Vomiting/Abd Pain Time Seen by Provider: 10/18/20 17:07 Source: patient, RN notes reviewed, old records reviewed Mode of arrival: ambulatory Limitations: no limitations - History of Present Illness Initial comments: 25-year-old female presenting with abdominal pain nausea vomiting. Patient's proximal is 7 weeks . She's had right-sided lower abdominal pain throughout the day today. She's had several episodes of vomiting and decreased appetite. She has not had a measured fever but has had subjective chills. Patient is otherwise healthy. No dysuria. - Related Data Home Medications Medication Instructions Recorded Confirmed Yob-Tsxy-Rzobr Acid 1 cap PO DAILY 06/09/18 01/13/19 [-U Capsule (formulary)] Previous Rx's Medication Instructions Recorded Ibuprofen [Motrin] 600 mg PO Q6HR PRN #30 tab 01/14/19 Allergies Allergy/AdvReac Type Severity Reaction Status Date / Time No Known Allergies Allergy Verified 10/18/20 16:56 Review of Systems ROS Statement: Those systems with pertinent positive or pertinent negative responses have been documented in the HPI. ROS Other: All systems not noted in ROS Statement are negative. Past Medical History Past Medical History: No Reported History Additional Past Medical History / Comment(s): reading glasses History of Any Multi-Drug Resistant Organisms: None Reported Past Surgical History: Adenoidectomy, Tonsillectomy Additional Past Surgical History / Comment(s): wisdom teeth Past Anesthesia/Blood Transfusion Reactions: No Reported Reaction Past Psychological History: No Psychological Hx Reported Smoking Status: Never smoker Past Alcohol Use History: None Reported Past Drug Use History: None Reported - Past Family History Mother Family Medical History: No Reported History, Hypertension Brother(s) Family Medical History: No Reported History, Hypertension General Exam Limitations: no limitations General appearance: alert, in no apparent distress Head exam: Present: atraumatic, normocephalic Eye exam: Present: normal appearance, PERRL ENT exam: Present: mucous membranes dry Neck exam: Present: normal inspection. Absent: tenderness, meningismus Respiratory exam: Present: normal lung sounds bilaterally. Absent: respiratory distress, wheezes Cardiovascular Exam: Present: regular rate, normal rhythm GI/Abdominal exam: Present: soft, tenderness (Right lower quadrant). Absent: distended, guarding Extremities exam: Present: normal inspection, normal capillary refill. Absent: pedal edema, calf tenderness Neurological exam: Present: alert, oriented X3, CN II-XII intact. Absent: motor sensory deficit Psychiatric exam: Present: normal affect, normal mood Skin exam: Present: warm, dry, intact. Absent: cyanosis, diaphoretic Course Vital Signs 10/18/20 16:54 Temperature 98.0 F Pulse Rate 95 Respiratory 20 Rate Blood Pressure 107/68 O2 Sat by Pulse 100 Oximetry Medical Decision Making - Medical Decision Making 25-year-old female who had presented with nausea vomiting and some right lower quadrant abdominal pain. Approximate 7 weeks . No measured fever. She has a leukocytosis of 11. Urinalysis shows squamous cells, no bacteria. She has normal labs otherwise. I did perform an ultrasound both of the and of the appendix. There is no secondary signs of appendicitis. She has a viable IUP with a heart rate of 161 and subchorionic hemorrhage. She is able to eat in the emergency department and is feeling somewhat better. She's given hydration no further vomiting. - Lab Data Result diagrams: 10/18/20 17:33 10/18/20 17:33 Lab Results 10/18/20 10/18/20 10/18/20 Range/Units 17:33 17:33 17:33 WBC 11.3 H (3.8-10.6) k/uL RBC 4.08 (3.80-5.40) m/uL Hgb 13.0 (11.4-16.0) gm/dL Hct 37.7 (34.0-46.0) % MCV 92.5 (80.0-100.0) fL MCH 31.8 (25.0-35.0) pg MCHC 34.4 (31.0-37.0) g/dL RDW 12.5 (11.5-15.5) % Plt Count 288 (150-450) k/uL MPV 7.2 Neutrophils % 88 % Lymphocytes % 6 % Monocytes % 3 % Eosinophils % 3 % Basophils % 0 % Neutrophils # 10.0 H (1.3-7.7) k/uL Lymphocytes # 0.6 L (1.0-4.8) k/uL Monocytes # 0.4 (0-1.0) k/uL Eosinophils # 0.3 (0-0.7) k/uL Basophils # 0.0 (0-0.2) k/uL Sodium 136 L (137-145) mmol/L Potassium 3.9 (3.5-5.1) mmol/L Chloride 104 (98-107) mmol/L Carbon Dioxide 25 (22-30) mmol/L Anion Gap 7 mmol/L BUN 7 (7-17) mg/dL Creatinine 0.56 (0.52-1.04) mg/dL Est GFR (CKD-EPI)AfAm >90 (>60 ml/min/1.73 sqM) Est GFR (CKD-EPI)NonAf >90 (>60 ml/min/1.73 sqM) Glucose 98 (74-99) mg/dL Calcium 9.0 (8.4-10.2) mg/dL Total Bilirubin 0.7 (0.2-1.3) mg/dL AST 19 (14-36) U/L ALT 13 (4-34) U/L Alkaline Phosphatase 59 (38-126) U/L C-Reactive Protein 3.3 H (<1.0) mg/dL Total Protein 6.6 (6.3-8.2) g/dL Albumin 4.1 (3.5-5.0) g/dL Lipase 99 (23-300) U/L HCG, Quant 277234.0 mIU/mL Urine Color Yellow Urine Appearance Cloudy H (Clear) Urine pH 6.0 (5.0-8.0) Ur Specific [place] 1.029 (1.001-1.035) Urine Protein Trace H (Negative) Urine Glucose (UA) Negative (Negative) Urine Ketones 4+ H (Negative) Urine Blood Negative (Negative) Urine Nitrite Negative (Negative) Urine Bilirubin Negative (Negative) Urine Urobilinogen <2.0 (<2.0) mg/dL Ur Leukocyte Esterase Negative (Negative) Urine RBC 1 (0-5) /hpf Urine WBC 3 (0-5) /hpf Ur Squamous Epith Cells 35 H (0-4) /hpf Urine Mucus Many H (None) /hpf Blood Type Blood Type Recheck Bld Type Recheck Status 10/18/20 Range/Units 17:35 WBC (3.8-10.6) k/uL RBC (3.80-5.40) m/uL Hgb (11.4-16.0) gm/dL Hct (34.0-46.0) % MCV (80.0-100.0) fL MCH (25.0-35.0) pg MCHC (31.0-37.0) g/dL RDW (11.5-15.5) % Plt Count (150-450) k/uL MPV Neutrophils % % Lymphocytes % % Monocytes % % Eosinophils % % Basophils % % Neutrophils # (1.3-7.7) k/uL Lymphocytes # (1.0-4.8) k/uL Monocytes # (0-1.0) k/uL Eosinophils # (0-0.7) k/uL Basophils # (0-0.2) k/uL Sodium (137-145) mmol/L Potassium (3.5-5.1) mmol/L Chloride (98-107) mmol/L Carbon Dioxide (22-30) mmol/L Anion Gap mmol/L BUN (7-17) mg/dL Creatinine (0.52-1.04) mg/dL Est GFR (CKD-EPI)AfAm (>60 ml/min/1.73 sqM) Est GFR (CKD-EPI)NonAf (>60 ml/min/1.73 sqM) Glucose (74-99) mg/dL Calcium (8.4-10.2) mg/dL Total Bilirubin (0.2-1.3) mg/dL AST (14-36) U/L ALT (4-34) U/L Alkaline Phosphatase (38-126) U/L C-Reactive Protein (<1.0) mg/dL Total Protein (6.3-8.2) g/dL Albumin (3.5-5.0) g/dL Lipase (23-300) U/L HCG, Quant mIU/mL Urine Color Urine Appearance (Clear) Urine pH (5.0-8.0) Ur Specific [place] (1.001-1.035) Urine Protein (Negative) Urine Glucose (UA) (Negative) Urine Ketones (Negative) Urine Blood (Negative) Urine Nitrite (Negative) Urine Bilirubin (Negative) Urine Urobilinogen (<2.0) mg/dL Ur Leukocyte Esterase (Negative) Urine RBC (0-5) /hpf Urine WBC (0-5) /hpf Ur Squamous Epith Cells (0-4) /hpf Urine Mucus (None) /hpf Blood Type A Positive Blood Type Recheck A Pos Bld Type Recheck Status No Disposition Clinical Impression: , Dehydration, Subchorionic hemorrhage in first trimester Disposition: HOME SELF-CARE Condition: Good Instructions (If sedation given, give patient instructions): Nausea and Vomit ing in (ED), Subchorionic Hemorrhage (ED), (ED) Is patient prescribed a controlled substance at d/c from ED?: No Referrals: Catracho Resendiz MD [Primary Care Provider] - 1-2 days Loy Mcgee DO [Doctor of Osteopathic Medicine] - 1-2 days Time of Disposition: 19:56
--- NOTE | 2020-10-18 19:18 | US ---
EXAMINATION TYPE: Transabdominal DATE OF EXAM: 10/18/2020 6:50 PM COMPARISON: NONE for this , US 2019. CLINICAL HISTORY: preg/RL pelvic pain. RLQ pelvic pain. . LMP unknown. EXAM PERFORMED: Transvaginal (TV) and Transabdominal (TA). Dr. Salvador requested to rule out torsi on, PW Doppler of the ovaries. EXAM MEASUREMENTS: GESTATIONAL AGE / DATING Physician Established: Not yet established. Dates by LMP: Unknown. Dates by First Scan: This is first scan Dates by Current Scan for: (7 weeks/1 day) EDC: 06/05/2021 MATERNAL ANATOMY Uterus: 9.6 x 9.5 x 8.2 cm. Anechoic area seen in cervix: 0.5 x 0.2 x 0.2 cm. Right Ovary: 4.0 x 2.3 x 2.0 cm. Follicles seen. Arterial and venous waveforms seen. Left Ovary: Not seen. Post CDS / Adnexa: Fluid seen in CDS measuring approximately 2.5 x 2.3 x 0.8 cm. Presence of free fluid: yes, in CDS. Presence of corpus luteal cyst: Not seen. Presence of subchorionic bleed: Hypoechoic, heterogeneous area seen to the left of the gestational sa c: 2.3 x 1.7 x 2.0 cm. GESTATION / SURVEY CRL: 1.05 cm. (7 weeks/1 day) Yolk Sac (normal less than 6mm): 3 mm. Heart Rate: 161 bpm Rhythm: Normal IUP: Viable IUP Date of LMP: Unknown. Beta HcG (if available): Not available. The ultrasound gestational age is 7 weeks and 1 day. There is possible subchorionic hemorrhage and bl ood clot on the left side. IMPRESSION:
[2020-10-18] MEDS ORDERED: ONDANSETRON 4 MG/2 ML VIAL IVP STA (19:21)
--- NOTE | 2020-10-18 19:28 | US ---
EXAMINATION TYPE: US abdomen APPY DATE OF EXAM: 10/18/2020 COMPARISON: NONE CLINICAL HISTORY: RLQ pain. RLQ pain. APPENDIX Appendix is not seen with certainty. -Hypoechoic area with vascularity seen within the RLQ. This area of uncertainty measures 1.3 x 3.3 x 0.5 cm. Possible appendix versus other?. -Largest AP measurement is 0.55 cm (Normal appendix AP diameter is <6 mm). Is there inflammatory changes or free fluid present: Hypoechoic area with hyperechoic center and vas cular hilum seen within the RLQ measuring 1.1 x 0.8 x 0.5 cm. IMPRESSION: No evidence of appendicitis. No free fluid.
[2020-10-18 20:07] VITALS: BP 122/71; PULSE 69; RESP 16
== END 2020-10-18 20:08 | disposition home or self-care (01) ==
LOC: EC 16:53
DX: O20.8 Other hemorrhage in early pregnancy (principal); O99.281 Endocrine, nutritional and metabolic diseases complicating pregnancy, first trimester; O21.9 Vomiting of pregnancy, unspecified; O99.111 Other diseases of the blood and blood-forming organs and certain disorders involving the immune mechanism complicating pregnancy, first trimester; O26.891 Other specified pregnancy related conditions, first trimester; O99.891 Other specified diseases and conditions complicating pregnancy; E86.0 Dehydration; D72.829 Elevated white blood cell count, unspecified; R10.2 Pelvic and perineal pain; R10.31 Right lower quadrant pain; R19.7 Diarrhea, unspecified; R68.83 Chills (without fever); Z3A.01 Less than 8 weeks gestation of pregnancy; Z67.10 Type A blood, Rh positive
CPT/HCPCS: 36415; 86900; 86901; 80053; 83690; 85025; 86140; 81001; 84702; 76705; 76801; 76817; 99284; 96374; 96361; J2405

== ENCOUNTER 2021-03-30 09:09 | Outpatient (CLI) | payer OTHER ==
[2021-03-30] MEDS ORDERED: BETAMET ACET-BETAMETH SOD PHOS 6 MG/ML MDV IM SCH (09:45)
[2021-03-30] MEDS ORDERED: LACTATED RINGERS 1,000 ML IV SCH (09:45)
[2021-03-30 12:23] VITALS: BP 111/64; PULSE 86; RESP 16
--- NOTE | 2021-04-03 17:03 | P.MSEPDOC ---
Presenting Problems - Arrival Data Date of Arrival on Unit: 03/30/21 Time of Arrival on Unit: 09:09 Mode of Transport: Ambulatory - Complaint OB-Reason for Admission/Chief Complaint: Possible Onset of Labor Medical History - Information : 3 Para: 2 Term: 2 : 0 Abortions: Spontaneous or Elective: 0 Number of Living Children: 2 - Gestational Age Gestational Age by DONTE (wks/days): 29 Weeks and 3 Days Review of Systems - Review of Systems Constitutional: No problems Breast: No problems ENT: No problems Cardiovascular: No problems Respiratory: No problems Gastrointestinal: No problems Genitourinary: No problems Musculoskeletal: No problems Neurological: No problems Skin: No problems Vital Signs - Pulse Right Brachial Pulse Rate: 86 Pulse Assessment Method: Automatic Cuff - Respirations Respiratory Rate: 16 Oxygen Delivery Method: Room Air O2 Sat by Pulse Oximetry: 100 - Blood Pressure Right Arm Blood Pressure: 111/64 Blood Pressure Mean: 79 Blood Pressure Source: Automatic Cuff Medical Screen Scoring - Cervical Exam Dilation (cm): 1.5 Effacement (%): 60 Station: -3 Membranes: Intact - Assessment - Baby A Baseline FHR: 140 Heart Rate - NICHD Category: Category I (Normal) Physician Notification - Physician Notified Physician Notified Date: 03/30/21 Physician Notified Time: 11:43 Physician: Francisca Peck New Order Received: Yes - Notification Comment Comment: Dr. Peck given update on pt. No change in pt vag exam. Pt reports some relief from contractions. FFN Negative. Orders recieved to d/c pt to home. To educate pt to come back in 24hr for 2nd [place], and to remain on pelvic rest, to educate on labor s/sx. Maternal Triage Index - Maternal Triage Index Presenting for scheduled procedure w/no complaint: No - Stat/Priority 1 Stat Priority 1: No - Urgent/Priority 2 Urgent Priority 2: Yes Provider Notified: Francisca Peck Provider Notified Time: 11:43 Criteria Met for Priority 2: Pt c/o of contractions since 619. Pt rating pain 9/10. Disposition - Disposition OB Disposition: Discharge to home Discharge Date: 03/30/21 Discharge Time: 11:57 I agree with the RN Medical Screening Exam: Yes Case reviewed; plan agreed upon as documented in EMR&OBIX.: Yes Diagnosis: FALSE LABOR BEFORE 37 COMPLETED WEEKS OF GEST, THIRD TRI
== END 2021-03-30 11:57 | disposition home or self-care (01) ==
LOC: FBPOP 09:09
PROVIDERS: ATTEND Obstetrics & Gynecology
DX: O47.03 False labor before 37 completed weeks of gestation, third trimester (principal); Z3A.29 29 weeks gestation of pregnancy
CPT/HCPCS: 59025; 96360; 96367; 96372; 82731; G0463; J0702; 99214

== ENCOUNTER 2021-03-31 12:33 | Outpatient (CLI) | payer OTHER ==
[2021-03-31 12:58] VITALS: BP 116/69; PULSE 99; RESP 16; TEMP 97.6
[2021-03-31] MEDS ORDERED: BETAMET ACET-BETAMETH SOD PHOS 6 MG/ML MDV IM SCH (13:00)
== END 2021-03-31 12:55 | disposition home or self-care (01) ==
LOC: FBPOP 12:33
PROVIDERS: ATTEND Obstetrics & Gynecology
DX: O60.03 Preterm labor without delivery, third trimester (principal); Z3A.29 29 weeks gestation of pregnancy
CPT/HCPCS: 96372; J0702

== ENCOUNTER 2021-05-28 10:40 | Inpatient (IN) | payer OTHER ==
[2021-05-28] MEDS ORDERED: CARBOPROST TROMETHAMINE 250 MCG/ML 1 ML AMP IM PRN (11:51)
[2021-05-28] MEDS ORDERED: METHYLERGONOVINE 0.2 MG/ML 1 ML AMP IM PRN (11:51)
[2021-05-28] MEDS ORDERED: OXYTOCIN 10 UNIT/ML 1 ML VIAL IM PRN (11:51)
[2021-05-28] MEDS ORDERED: TERBUTALINE 1 MG/ML VIAL SQ PRN (11:51)
[2021-05-28] MEDS ORDERED: LIDOCAINE 1% (PF) 10 MG/ML (30 ML SDV) SQ PRN (11:51)
[2021-05-28] MEDS: LACTATED RINGERS 1,000 ML IV SCH ×3 (11:57→15:34)
[2021-05-28] MEDS ORDERED: OXYTOCIN 30 UNITS/500 ML NS 30 UNIT in SALINE 1 500ML.BAG IV SCH ×2 (12:00→16:30)
[2021-05-28 12:01] LABS: Basophils % (A) 0 %; Eosinophils # (A) 0.2 k/uL (0-0.7); Eosinophils % (A) 2 %; Lymphocytes # (A) 1.9 k/uL (1.0-4.8); Lymphocytes % (A) 16 %; MCH 32.5 pg (25.0-35.0); MCHC 33.4 g/dL (31.0-37.0); MCV 97.2 fL (80.0-100.0); Mean Platelet Volume 8.1; Monocytes # (A) 0.6 k/uL (0-1.0); Monocytes % (A) 5 %; Neutrophils % (A) 76 %; Platelet Count 232 k/uL (150-450); RBC 4.01 m/uL (3.80-5.40); RDW 13.9 % (11.5-15.5); WBC 11.9 k/uL (3.8-10.6)
[2021-05-28 12:11] VITALS: RESP 16
[2021-05-28] MEDS ORDERED: ROPIVACAINE 100 MG, fentaNYL (PF). 200 MCG in SODIUM CHLORIDE 0.9% 76 ML EPIDURAL ONE (16:12)
[2021-05-28] MEDS ORDERED: LANOLIN CREAM 5 GM TUBE TOPICAL PRN (16:20)
[2021-05-28] MEDS ORDERED: HYDROCORTISONE 2.5% RECTAL CREAM 30 GM TUBE RECTAL PRN (16:20)
[2021-05-28] MEDS ORDERED: diphenhydrAMINE 50 MG/ML 1 ML VIAL IVP PRN ×2 (16:20)
[2021-05-28] MEDS ORDERED: diphenhydrAMINE 25 MG CAP PO PRN (16:20)
[2021-05-28] MEDS ORDERED: BENZOCAINE/MENTHOL SPRAY 1 GM/SPRAY AEROSOL TOPICAL PRN (16:20)
[2021-05-28] MEDS ORDERED: SIMETHICONE 80 MG CHEWABLE PO PRN (16:20)
[2021-05-28] MEDS ORDERED: diphenhydrAMINE 50 MG CAP PO PRN (16:20)
[2021-05-28] MEDS ORDERED: ZOLPIDEM 5 MG TAB PO PRN (16:20)
--- NOTE | 2021-05-28 16:20 | P.HPOB ---
History of Present Illness H&P Date: 05/28/21 Chief Complaint: Labor 25 year old presents at 39 weeks 1 day in labor. Her cervix is 4/90/-2 and she is radha every 2-4 minutes. heart tones 140 with moderate variability and reactive. Review of Systems All systems: negative Constitutional: Denies chills, Denies fever Eyes: denies blurred vision, denies pain Ears, nose, mouth and throat: Denies headache, Denies sore throat Cardiovascular: Denies chest pain, Denies shortness of breath Respiratory: Denies cough Gastrointestinal: Denies abdominal pain, Denies diarrhea, Denies nausea, Denies vomiting Genitourinary: Denies dysuria, Denies hematuria Musculoskeletal: Denies myalgias Integumentary: Denies pruritus, Denies rash Neurological: Denies numbness, Denies weakness Psychiatric: Denies anxiety, Denies depression Endocrine: Denies fatigue, Denies weight change Past Medical History Past Medical History: No Reported History Additional Past Medical History / Comment(s): reading glasses History of Any Multi-Drug Resistant Organisms: None Reported Past Surgical History: Adenoidectomy, Breast Surgery, Tonsillectomy Additional Past Surgical History / Comment(s): wisdom teeth Past Anesthesia/Blood Transfusion Reactions: No Reported Reaction Past Psychological History: No Psychological Hx Reported Smoking Status: Never smoker Past Alcohol Use History: None Reported Past Drug Use History: None Reported - Past Family History Mother Family Medical History: No Reported History, Hypertension Brother(s) Family Medical History: No Reported History, Hypertension Medications and Allergies Home Medications Medication Instructions Recorded Confirmed Type Pnv No.95/Ferrous Fum/Folic AC 1 tab PO ONCE 03/30/21 05/28/21 History [ Multivitamin Tablet] Allergies Allergy/AdvReac Type Severity Reaction Status Date / Time No Known Allergies Allergy Verified 05/28/21 10:56 Exam Osteopathic Statement: *. No significant issues noted on an osteopathic structural exam other than those noted in the History and Physical/Consult. Vital Signs Temp Pulse Resp BP Pulse Ox 05/28/21 12:07 97.1 F L 68 16 122/74 99 Intake and Output 05/28/21 05/28/21 05/28/21 06:59 14:59 22:59 Other: # Voids 1 Weight 72.575 kg Heart: Regular rate and rhythm Lungs: Clear to auscultation bilaterally Abdomen: Soft, nontender Extremities: Negative Homans sign Results Result Diagrams: 05/28/21 11:50 Abnormal Lab Results - Last 24 Hours (Table) 05/28/21 Range/Units 11:50 WBC 11.9 H (3.8-10.6) k/uL Neutrophils # 9.0 H (1.3-7.7) k/uL Assessment and Plan (1) Normal labor Current Visit: Yes Status: Acute Code(s): O80 - ENCOUNTER FOR FULL-TERM UNCOMPLICATED DELIVERY; Z37.9 - OUTCOME OF DELIVERY, UNSPECIFIED SNOMED Code(s): 51413233 Plan: 1. Admit to family place 2. Epidural for pain management 3. Anticipate normal vaginal delivery
--- NOTE | 2021-05-28 16:23 | P.PROBDLV ---
Vaginal Delivery Note - . Vaginal Delivery Note: 25 year old presents at 39 weeks 1 day in labor. Her cervix is 4/90/-2 and she is radha every 2-4 minutes. heart tones 140 with moderate variability and reactive. She was admitted to [facility] and epidural was given for pain management. Soon after that her water spontaneously broke at 12:54 PM and clear fluid noted. She quickly progressed to complete but was unable to feel to push so did labor down some and required some Pitocin augmenta tion. She then pushed a few times and delivered a viable male infant over intact perineum under epidural anesthesia at 1604. Head delivered OA, anterior shoulder delivered gentle downward guidance for by posterior shoulder and rest of body. Nose and mouth bulb suctioned, cord clamped and cut, infant placed on mother's abdomen. Apgars 9, 9, weight 8 lbs. 9 oz. Placenta delivered spontaneous, intact with three-vessel cord at 1608. Vagina, cervix, perineum inspected. First-degree midline laceration was repaired with 3-0 Vicryl. Estimated blood loss 50 mL. Mother and baby in stable condition.
[2021-05-28] MEDS: IBUPROFEN 600 MG TAB PO PRN ×2 (16:34→23:43)
[2021-05-28] MEDS: SENNOSIDES-DOCUSATE SODIUM 1 EACH TAB PO SCH (19:32)
[2021-05-28] MEDS: ACETAMINOPHEN TAB 325 MG TAB PO PRN (19:32)
[2021-05-29] MEDS: ACETAMINOPHEN TAB 325 MG TAB PO PRN ×2 (03:21→09:50)
[2021-05-29] MEDS: SENNOSIDES-DOCUSATE SODIUM 1 EACH TAB PO SCH (07:20)
[2021-05-29] MEDS: IBUPROFEN 600 MG TAB PO PRN (07:21)
[2021-05-29 08:08] LABS: Basophils % (A) 0 %; Eosinophils # (A) 0.2 k/uL (0-0.7); Eosinophils % (A) 1 %; HCT 40.2 % (34.0-46.0); HGB 13.2 gm/dL (11.4-16.0); Lymphocytes # (A) 1.7 k/uL (1.0-4.8); Lymphocytes % (A) 11 %; MCH 32.8 pg (25.0-35.0); MCHC 32.9 g/dL (31.0-37.0); MCV 99.8 fL (80.0-100.0); Macrocytosis Slight; Mean Platelet Volume 8.2; Monocytes # (A) 0.7 k/uL (0-1.0); Monocytes % (A) 5 %; Neutrophils # (A) 12.9 k/uL (1.3-7.7); Neutrophils % (A) 83 %; Platelet Count 252 k/uL (150-450); RBC 4.03 m/uL (3.80-5.40); RDW 13.9 % (11.5-15.5); WBC 15.7 k/uL (3.8-10.6)
--- NOTE | 2021-05-29 08:12 | P.DS ---
Providers Date of admission: 05/28/21 11:31 Expected date of discharge: 05/29/21 Attending physician: Loy Mcgee Primary care physician: Stated None - Discharge Diagnosis(es) (1) Normal labor Current Visit: Yes Status: Resolved (2) Status post normal vaginal delivery Current Visit: Yes Status: Acute Hospital Course: Patient presented in active labor. She underwent a normal vaginal delivery with an epidural. course was uncomplicated though she is having some pubic bone discomfort. Her lochia is decreasing her uterus is firm. She denies nausea, vomiting, chest pain, shortness of breath or any calf pain. Patient will be discharged home day #1 in stable condition to follow-up with me in 6 weeks. Plan - Discharge Summary New Discharge Prescriptions: New Ibuprofen [Motrin] 600 mg PO Q6HR PRN #40 tab PRN Reason: Mild Pain (Scale 1 To 3) No Action Pnv No.95/Ferrous Fum/Folic AC [ Multivitamin Tablet] 1 tab PO ONCE Discharge Medication List Pnv No.95/Ferrous Fum/Folic AC [ Multivitamin Tablet] 1 tab PO ONCE 03/30/21 [History] Ibuprofen [Motrin] 600 mg PO Q6HR PRN #40 tab 05/29/21 [Rx] Follow up Appointment(s)/Referral(s): Francisca Peck DO [Doctor of Osteopathic Medicine] - 6 Weeks Discharge Disposition: HOME SELF-CARE
[2021-05-29 16:20] VITALS: BP 124/74; PULSE 75; TEMP 98.3
== END 2021-05-29 16:58 | disposition home or self-care (01) | DRG 807 ==
LOC: FBPOP 10:40 → 4FBP 11:31
PROVIDERS: ADMIT Obstetrics & Gynecology; ATTEND Obstetrics & Gynecology
PROC: 10E0XZZ Delivery of Products of Conception, External Approach (ICD-10-PCS; principal; 2021-05-28)
PROC: 3E0R3NZ Introduction of Analgesics, Hypnotics, Sedatives into Spinal Canal, Percutaneous Approach (ICD-10-PCS; principal; 2021-05-28)
PROC: 0HQ9XZZ Repair Perineum Skin, External Approach (ICD-10-PCS; principal; 2021-05-28)
PROC: 00HU33Z Insertion of Infusion Device into Spinal Canal, Percutaneous Approach (ICD-10-PCS; principal; 2021-05-28)
DX: O70.0 First degree perineal laceration during delivery (principal); Z37.0 Single live birth; Z3A.39 39 weeks gestation of pregnancy; Z90.89 Acquired absence of other organs; Z98.818 Other dental procedure status; Z87.2 Personal history of diseases of the skin and subcutaneous tissue; Z97.3 Presence of spectacles and contact lenses; Z98.890 Other specified postprocedural states; Z82.49 Family history of ischemic heart disease and other diseases of the circulatory system; Z79.899 Other long term (current) drug therapy
CPT/HCPCS: 59025; 85025; 86850; 86900; 86901; 99213

== ENCOUNTER → 2022-11-16 | Outpatient (CLI) | payer OTHER ==
--- NOTE | 2022-11-16 14:18 | US ---
EXAMINATION TYPE: US pelvic complete DATE OF EXAM: 11/16/2022 COMPARISON: None CLINICAL INDICATION: Female, 27 years old with history of R10.2 PELVIC AND PERINEAL PAIN; left side p ain TECHNIQUE: Transabdominal (TA). Transabdominal sonographic images of the pelvis were acquired. Date of LMP: 10/25/2022, EXAM MEASUREMENTS: Uterus: 8.9 x 6.9 x 4.8 cm Endometrial Stripe: 0.9 cm Right Ovary: 3.2 x 1.8 x 1.3 cm Left Ovary: 3.0 x 2.4 x 3.1 cm 1. Uterus: Anteverted wnl 2. Endometrium: wnl 3. Right Ovary: follicles seen 4. Left Ovary: wnl 5. Bilateral Adnexa: Free fluid seen adjacent to bilateral ovaries 6. Posterior cul-de-sac: Moderate amount of free fluid visualized Unremarkable anteverted uterus. Endometrium is within normal limits. Both ovaries are unremarkable wi th follicles in the right ovary. Small amount of free fluid adjacent to both ovaries. Moderate amount of free fluid in the posterior cul-de-sac. IMPRESSION: Moderate amount of simple free fluid in the posterior cul-de-sac and small amount in the bilateral ad nexa. This could be seen with a ruptured cyst.
== END | disposition home or self-care (01) ==
LOC: RADUSWWP 13:33
PROVIDERS: ATTEND Obstetrics & Gynecology
DX: N83.8 Other noninflammatory disorders of ovary, fallopian tube and broad ligament (principal)
CPT/HCPCS: 76856

== ENCOUNTER 2023-03-01 11:06 | Emergency (ER) | payer OTHER ==
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
[2023-03-01 11:48] VITALS: TEMP 98.9
[2023-03-01 13:53] LABS: Appearance,Urine Cloudy (Clear); Bacteria,Urine Occasional /hpf; Bilirubin,Urine Negative (Negative); Blood,Urine Large (Negative); Color,Urine Light Yellow; Glucose,Urine (UA) Negative (Negative); Ketones,Urine 1+ (Negative); Leukocyte Esterase,Urine Large (Negative); Mucus,Urine Few /hpf; Nitrite,Urine Negative (Negative); PH, Urine 6.5 (5.0-8.0); Protein,Urine Trace (Negative); RBC,Urine 4 /hpf (0-5); Squamous Epithelial Cell,Urine 10 /hpf (0-4); Urobilinogen,Urine <2.0 mg/dL (<2.0); WBC,Urine 61 /hpf (0-5)
[2023-03-01 14:54] VITALS: BP 113/76; PULSE 67; RESP 18
[2023-03-01 16:30] LABS: Hepatitis B Core IgM Nonreactive; Hepatitis B Surface AB- Quant 20.5 mIU/mL; Hepatitis B Surface Antigen Nonreactive
[2023-03-01 18:11] LABS: HIV 2 AB Non-Reactive (Non-Reactive); HIV AB P24 Non-Reactive (Non-Reactive); HIV P24 AG Non-Reactive (Non-Reactive)
[2023-03-04 11:36] LABS: Hepatitis B Virus DNA Not detected (Not detected); Hepatitis B Virus DNA, Quant <10 IU/mL (<10); Log HBV IU/mL <1.00 (<1.00)
== END 2023-03-01 14:45 | disposition home or self-care (01) ==
LOC: EC 11:06
DX: N30.00 Acute cystitis without hematuria (principal); Z11.3 Encounter for screening for infections with a predominantly sexual mode of transmission; A41.50 Gram-negative sepsis, unspecified
CPT/HCPCS: 36415; 81001; 86704; 86705; 86706; 86780; 87086; 87340; 87390; 87517; 99283

== ENCOUNTER 2023-06-30 05:52 | Emergency (ER) | payer OTHER ==
[2023-06-30] MEDS: KETOROLAC 15 MG/ML 1 ML VIAL IVP STA (06:28)
[2023-06-30] MEDS: SODIUM CHLORIDE 0.9% 1,000 ML IV STA (06:28)
--- NOTE | 2023-06-30 06:28 | ED ---
Abdominal Pain HPI - General Chief Complaint: Abdominal Pain Stated Complaint: Gallbladder pain Time Seen by Provider: 06/30/23 06:26 Source: patient, RN notes reviewed Mode of arrival: ambulatory Limitations: no limitations - History of Present Illness Initial Comments: Patient is a 27-year-old female presented to ER with chief complaint of right upper quadrant pain. She states that started around 930 last night with radiation to right flank. She is also endorsing nausea that comes in waves. She also admits to diarrhea and decreased appetite. She states she also has been experiencing intermittent chills. Denies any vomiting, fevers, chest pain, shortness of breath, urinary complaints, peripheral edema. - Related Data Home Medications Medication Instructions Recorded Confirmed Pnv No.95/Ferrous Fum/Folic AC 1 tab PO ONCE 03/30/21 05/28/21 [ Multivitamin Tablet] Previous Rx's Medication Instructions Recorded Ibuprofen [Motrin] 600 mg PO Q6HR PRN #40 tab 05/29/21 Nitrofurantoin Monohyd/M-Cryst 100 mg PO Q12HR #14 cap 03/01/23 [Macrobid] Allergies Allergy/AdvReac Type Severity Reaction Status Date / Time No Known Allergies Allergy Verified 03/01/23 11:24 Review of Systems ROS Statement: Those systems with pertinent positive or pertinent negative responses have been documented in the HPI. ROS Other: All systems not noted in ROS Statement are negative. Past Medical History Past Medical History: No Reported History Additional Past Medical History / Comment(s): reading glasses History of Any Multi-Drug Resistant Organisms: None Reported Past Surgical History: Adenoidectomy, Breast Surgery, Tonsillectomy Additional Past Surgical History / Comment(s): wisdom teeth Past Anesthesia/Blood Transfusion Reactions: No Reported Reaction Past Psychological History: No Psychological Hx Reported Smoking Status: Never smoker Past Alcohol Use History: None Reported Past Drug Use History: None Reported - Past Family History Mother Family Medical History: No Reported History, Hypertension Brother(s) Family Medical History: No Reported History, Hypertension General Exam Limitations: no limitations General appearance: alert, in no apparent distress Head exam: Present: atraumatic, normocephalic, normal inspection Eye exam: Present: normal appearance, PERRL, EOMI. Absent: scleral icterus, conjunctival injection, periorbital swelling Respiratory exam: Present: normal lung sounds bilaterally. Absent: respiratory distress, wheezes, rales, rhonchi, stridor Cardiovascular Exam: Present: regular rate, normal rhythm, normal heart sounds. Absent: systolic murmur, diastolic murmur, rubs, gallop, clicks GI/Abdominal exam: Present: soft, tenderness (RUQ, murphys sign), normal bowel sounds. Absent: distended, guarding, rebound, rigid Neurological exam: Present: alert, oriented X3, CN II-XII intact Psychiatric exam: Present: normal affect, normal mood Skin exam: Present: warm, dry, intact, normal color. Absent: rash Course Vital Signs 06/30/23 06/30/23 05:53 08:15 Temperature 98.2 F Pulse Rate 111 H 81 Respiratory 16 15 Rate Blood Pressure 128/89 O2 Sat by Pulse 100 99 Oximetry Medical Decision Making - Medical Decision Making Was pt. sent in by a medical professional or institution (, PA, RN ADMIT, urgent care, hospital, or shelter...) When possible be specific @ -No Did you speak to anyone other than the patient for history (EMS, parent, family, police, friend...)? What history was obtained from this source @ -No Did you review nursing and triage notes (agree or disagree)? Why? @ -I reviewed and agree with nursing and triage notes Were old charts reviewed (outside hosp., previous admission, EMS record, old EKG, old radiological studies, urgent care reports/EKG's, shelter records)? Report findings @ -No old charts were reviewed Differential Diagnosis (chest pain, altered mental status, abdominal pain women, abdominal pain men, vaginal bleeding, weakness, fever, dyspnea, syncope, headache, dizziness, GI bleed, back pain, seizure, CVA, palpatations, mental health, musculoskeletal)? @ -Differential Abdominal Pain Women:Appendicitis, Cholecystitis, diverticulosi s, ischemic bowel, pancreatitis, hepatitis, UTI, gastroenteritis, AAA, incarcerated hernia, bowel obstruction, constipation, inflammatory bowel, hepatitis, peptic ulcer disease, splenic infarction, perforated viscus, vulvitis, ovarian torsion, PID, kidney stone, placenta abruption, this is not meant to be an all-inclusive list EKG interpreted by me (3pts min.). @ -As above X-rays interpreted by me (1pt min.). @ -None done CT interpreted by me (1pt min.). @ -None done U/S interpreted by me (1pt. min.). @ -Ultrasound gallbladder negative for acute process What testing was considered but not performed or refused? (CT, X-rays, U/S, labs)? Why? @ -None What meds were considered but not given or refused? Why? @ -None Did you discuss the management of the patient with other professionals (shane coker i.e. , PA, RN ADMIT, lab, RT, psych nurse, manager social responsibility, inside contractor sales, teacher, bank secrecy act officer, porter sample case)? Give summary @ -No Was smoking cessation discussed for >3mins.? @ -No Was critical care preformed (if so, how long)? @ -No Were there social determinants of health that impacted care today? How? (Homelessness, low income, unemployed, alcoholism, drug addiction, transportation, low edu. Level, literacy, decrease access to med. care, care home, rehab)? @ -No Was there de-escalation of care discussed even if they declined (Discuss DNR or withdrawal of care, Hospice)? DNR status @ -No What co-morbidities impacted this encounter? (DM, HTN, Smoking, COPD, CAD, Cancer, CVA, ARF, Chemo, Hep., AIDS, mental health diagnosis, sleep apnea, morbid obesity)? @ -None Was patient admitted / discharged? Hospital course, mention meds given and route, prescriptions, significant lab abnormalities, going to OR and other pertinent info. @ -Discharge. Patient is a 27-year-old female presented to ER with a chief complaint of right upper quadrant abdominal pain. History and physical exam co mpleted. Vitals stable. Patient in no signs of acute distress and resting comfortably in exam room. Patient was mildly tender to palpation of right upper quadrant. Labs obtained significant for WBC 12.8 otherwise unremarkable. Urinalysis without signs of infection. Urine did have blood which is most likely related to vaginal spotting as patient recently started Depo-Provera. US gallbladder negative for acute process. Symptoms controlled in the ER. Results discussed with patient, all questions answered. Discharged with starter pack of Zofran. Patient discharged in stable condition with follow-up to PCP/GI. Referral given. Return parameters discussed. Patient expressed understanding and agreement with care plan. Undiagnosed new problem with uncertain prognosis? @ -No Drug Therapy requiring intensive monitoring for toxicity (Heparin, Nitro, Insulin, Cardizem)? @ -No Were any procedures done? @ -No Diagnosis/symptom? @ -Abdominal pain Acute, or Chronic, or Acute on Chronic? @ -Acute Uncomplicated (without systemic symptoms) or Complicated (systemic symptoms)? @ -Uncomplicated Side effects of treatment? @ -No Exacerbation, Progression, or Severe Exacerbation? @ -No Poses a threat to life or bodily function? How? (Chest pain, [place], [place], pneumonia, PE, COPD, DKA, ARF, appy, cholecystitis, CVA, Diverticulitis, Homicidal, Suicidal, threat to staff... and all critical care pts) @ -No - Lab Data Result diagrams: 06/30/23 06:30 06/30/23 06:30 Lab Results 06/30/23 06/30/23 06/30/23 Range/Units 06:30 06:30 06:30 WBC 12.8 H (3.8-10.6) k/uL RBC 4.38 (3.80-5.40) m/uL Hgb 13.7 (11.4-16.0) gm/dL Hct 41.5 (34.0-46.0) % MCV 94.7 (80.0-100.0) fL MCH 31.2 (25.0-35.0) pg MCHC 32.9 (31.0-37.0) g/dL RDW 12.4 (11.5-15.5) % Plt Count 277 (150-450) k/uL MPV 7.5 Neutrophils % 87 % Lymphocytes % 5 % Monocytes % 4 % Eosinophils % 3 % Basophils % 0 % Neutrophils # 11.2 H (1.3-7.7) k/uL Lymphocytes # 0.6 L (1.0-4.8) k/uL Monocytes # 0.6 (0-1.0) k/uL Eosinophils # 0.4 (0-0.7) k/uL Basophils # 0.0 (0-0.2) k/uL Sodium 139 (137-145) mmol/L Potassium 4.1 (3.5-5.1) mmol/L Chloride 106 (98-107) mmol/L Carbon Dioxide 24 (22-30) mmol/L Anion Gap 9 mmol/L BUN 14 (7-17) mg/dL Creatinine 0.71 (0.52-1.04) mg/dL Est GFR (CKD-EPI)AfAm >90 (>60 ml/min/1.73 sqM) Est GFR (CKD-EPI)NonAf >90 (>60 ml/min/1.73 sqM) Glucose 96 (74-99) mg/dL Plasma Lactic Acid Naresh 1.1 (0.7-2.0) mmol/L Calcium 10.0 (8.4-10.2) mg/dL Total Bilirubin 1.2 (0.2-1.3) mg/dL AST 20 (14-36) U/L ALT 17 (4-34) U/L Alkaline Phosphatase 60 (38-126) U/L Total Protein 7.2 (6.3-8.2) g/dL Albumin 4.5 (3.5-5.0) g/dL Amylase 86 (30-110) U/L Lipase 228 (23-300) U/L Urine Color Urine Appearance (Clear) Urine pH (5.0-8.0) Ur Specific [place] (1.001-1.035) Urine Protein (Negative) Urine Glucose (UA) (Negative) Urine Ketones (Negative) Urine Blood (Negative) Urine Nitrite (Negative) Urine Bilirubin (Negative) Urine Urobilinogen (<2.0) mg/dL Ur Leukocyte Esterase (Negative) Urine RBC (0-5) /hpf Urine WBC (0-5) /hpf Urine WBC Clumps (None) /hpf Ur Squamous Epith Cells (0-4) /hpf Urine Bacteria (None) /hpf Urine Mucus (None) /hpf Urine HCG, Qual (Not Detectd) 06/30/23 06/30/23 Range/Units 07:42 07:42 WBC (3.8-10.6) k/uL RBC (3.80-5.40) m/uL Hgb (11.4-16.0) gm/dL Hct (34.0-46.0) % MCV (80.0-100.0) fL MCH (25.0-35.0) pg MCHC (31.0-37.0) g/dL RDW (11.5-15.5) % Plt Count (150-450) k/uL MPV Neutrophils % % Lymphocytes % % Monocytes % % Eosinophils % % Basophils % % Neutrophils # (1.3-7.7) k/uL Lymphocytes # (1.0-4.8) k/uL Monocytes # (0-1.0) k/uL Eosinophils # (0-0.7) k/uL Basophils # (0-0.2) k/uL Sodium (137-145) mmol/L Potassium (3.5-5.1) mmol/L Chloride (98-107) mmol/L Carbon Dioxide (22-30) mmol/L Anion Gap mmol/L BUN (7-17) mg/dL Creatinine (0.52-1.04) mg/dL Est GFR (CKD-EPI)AfAm (>60 ml/min/1.73 sqM) Est GFR (CKD-EPI)NonAf (>60 ml/min/1.73 sqM) Glucose (74-99) mg/dL Plasma Lactic Acid Naresh (0.7-2.0) mmol/L Calcium (8.4-10.2) mg/dL Total Bilirubin (0.2-1.3) mg/dL AST (14-36) U/L ALT (4-34) U/L Alkaline Phosphatase (38-126) U/L Total Protein (6.3-8.2) g/dL Albumin (3.5-5.0) g/dL Amylase (30-110) U/L Lipase (23-300) U/L Urine Color Colorless Urine Appearance Cloudy H (Clear) Urine pH 7.5 (5.0-8.0) Ur Specific [place] 1.010 (1.001-1.035) Urine Protein Trace H (Negative) Urine Glucose (UA) Negative (Negative) Urine Ketones Negative (Negative) Urine Blood Large H (Negative) Urine Nitrite Negative (Negative) Urine Bilirubin Negative (Negative) Urine Urobilinogen <2.0 (<2.0) mg/dL Ur Leukocyte Esterase Moderate H (Negative) Urine RBC 28 H (0-5) /hpf Urine WBC 19 H (0-5) /hpf Urine WBC Clumps Many H (None) /hpf Ur Squamous Epith Cells 16 H (0-4) /hpf Urine Bacteria Few H (None) /hpf Urine Mucus Rare H (None) /hpf Urine HCG, Qual Not Detected (Not Detectd) - EKG Data -: EKG Interpreted by Me EKG Comments: EKG taken at 6: 20 shows normal sinus rhythm with no acute ST segment or T wave abnormalities. Ventricular rate 87, PA interval 141, QRS duration 94, QT/QTc 324/368. - Radiology Data Radiology results: report reviewed, image reviewed Disposition Clinical Impression: Abdominal pain Disposition: HOME SELF-CARE Condition: Stable Instructions (If sedation given, give patient instructions): Abdominal Pain (ED) Additional Instructions: Please follow-up with PCP/GI. Return to the ER for any new or worsening symptoms. Is patient prescribed a controlled substance at d/c from ED?: No Referrals: Catracho Resendiz MD [Primary Care Provider] - 1-2 days Anali Sahu MD [STAFF PHYSICIAN] - 1-2 days Time of Disposition: 08:26
[2023-06-30] MEDS: ONDANSETRON 4 MG/2 ML VIAL IVP STA (06:29)
[2023-06-30 06:40] LABS: Basophils % (A) 0 %; Eosinophils # (A) 0.4 k/uL (0-0.7); Eosinophils % (A) 3 %; HCT 41.5 % (34.0-46.0); HGB 13.7 gm/dL (11.4-16.0); Lymphocytes # (A) 0.6 k/uL (1.0-4.8); Lymphocytes % (A) 5 %; MCH 31.2 pg (25.0-35.0); MCHC 32.9 g/dL (31.0-37.0); MCV 94.7 fL (80.0-100.0); Mean Platelet Volume 7.5; Monocytes # (A) 0.6 k/uL (0-1.0); Monocytes % (A) 4 %; Neutrophils # (A) 11.2 k/uL (1.3-7.7); Neutrophils % (A) 87 %; Platelet Count 277 k/uL (150-450); RBC 4.38 m/uL (3.80-5.40); RDW 12.4 % (11.5-15.5); WBC 12.8 k/uL (3.8-10.6)
[2023-06-30 06:52] LABS: ALT 17 U/L (4-34); AST 20 U/L (14-36); African American GFR (CKD) >90 (>60 ml/min/1.73 sqM); Albumin 4.5 g/dL (3.5-5.0); Alkaline Phosphatase 60 U/L (38-126); Amylase 86 U/L (30-110); Anion Gap 9 mmol/L; Blood Urea Nitrogen 14 mg/dL (7-17); Carbon Dioxide 24 mmol/L (22-30); Chloride 106 mmol/L (98-107); Glucose 96 mg/dL (74-99); Lipase 228 U/L (23-300); Non-African American GFR(CKD) >90 (>60 ml/min/1.73 sqM); Potassium 4.1 mmol/L (3.5-5.1); Sodium 139 mmol/L (137-145); Total Bilirubin 1.2 mg/dL (0.2-1.3); Total Protein 7.2 g/dL (6.3-8.2)
--- NOTE | 2023-06-30 07:45 | US ---
EXAMINATION TYPE: US gallbladder DATE OF EXAM: 06/30/2023 COMPARISON: NONE CLINICAL INDICATION: Female, 27 years old with history of RUQ pain; Pain. TECHNIQUE: Multiple sonographic images of the right upper quadrant are obtained. FINDINGS: EXAM MEASUREMENTS: Liver Length: 16.3 cm Gallbladder Wall: 0.1 cm CBD: 0.5 cm Right Kidney: 11.7 x 5.9 x 3.9 cm Pancreas: wnl Liver: wnl Gallbladder: No stones or wall thickening seen Evidence for sonographic Davey's sign: Neg CBD: wnl Right Kidney: Medial anechoic cyst at hilum - 2.1 x 1.4 cm IMPRESSION: No evidence for acute process.
[2023-06-30 08:10] LABS: Appearance,Urine Cloudy (Clear); Bacteria,Urine Few /hpf; Bilirubin,Urine Negative (Negative); Blood,Urine Large (Negative); Color,Urine Colorless; Glucose,Urine (UA) Negative (Negative); Ketones,Urine Negative (Negative); Leukocyte Esterase,Urine Moderate (Negative); Mucus,Urine Rare /hpf; Nitrite,Urine Negative (Negative); PH, Urine 7.5 (5.0-8.0); Protein,Urine Trace (Negative); RBC,Urine 28 /hpf (0-5); Squamous Epithelial Cell,Urine 16 /hpf (0-4); Urobilinogen,Urine <2.0 mg/dL (<2.0); WBC,Urine 19 /hpf (0-5)
[2023-06-30 08:24] VITALS: PULSE 81; RESP 15
[2023-06-30] MEDS: ONDANSETRON 4 MG ODT STARTER PACK 2 TAB BTL PO STA (08:34)
[2023-06-30 08:57] VITALS: BP 121/70; TEMP 98
== END 2023-06-30 08:37 | disposition home or self-care (01) ==
LOC: EC 05:52
DX: R10.11 Right upper quadrant pain (principal)
CPT/HCPCS: 36415; 93005; 80053; 82150; 83605; 83690; 85025; 81001; 81025; 87086; 76705; 99284; 96374; 96375; 96361; J2405; J1885; S0119

== ENCOUNTER 2023-11-15 16:05 | Emergency (ER) | payer OTHER ==
[2023-11-15 16:37] VITALS: RESP 18; TEMP 98.1
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
[2023-11-15 18:27] VITALS: BP 118/80; PULSE 72
== END 2023-11-15 18:30 | disposition home or self-care (01) ==
LOC: EC 16:05
DX: S90.811A Abrasion, right foot, initial encounter (principal); Z90.89 Acquired absence of other organs; V43.52XA Car driver injured in collision with other type car in traffic accident, initial encounter; Y92.410 Unspecified street and highway as the place of occurrence of the external cause
CPT/HCPCS: 99284

== ENCOUNTER 2023-11-18 11:28 | Emergency (ER) | payer OTHER ==
[~2023-11-18 11:28] MED LIST: KETOROLAC 15 MG/ML 1 ML VIAL ONE
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
== END 2023-11-18 16:34 | disposition left against medical advice (07) ==
LOC: EC 11:28
CPT/HCPCS: 72125; 96372; 99282